=== PATIENT | female | born 1980 | race Caucasian/White ===

== ENCOUNTER → 2020-09-19 14:24 | Outpatient (BNVA) | payer OTHER, SELFPAY | PROVIDERS: Visit Provider Orthopaedic Surgery | DX: M25.361 Other instability, right knee (principal) | CPT/HCPCS: 99212 ==

== ENCOUNTER 2020-11-02 13:54 | Outpatient (REF) | payer OTHER, SELFPAY ==
--- NOTE | 2020-11-02 13:59 | XR_ITS ---
EXAMINATION: XR CHEST CLINICAL INFORMATION: Chest pain. COMPARISON: 08/23/2019 chest radiographs. TECHNIQUE: 2 views of the chest were obtained. FINDINGS: No significant abnormality is noted involving the heart, lungs, mediastinum, bony thorax or soft tissues. XR/XR chest 2V IMPRESSION: No acute cardiopulmonary process.
[2020-11-02 17:31] LABS: Influenza A PCR NEGATIVE (Negative); Influenza B PCR NEGATIVE (Negative); Resp Syncy Virus RNA Qual PCR NEGATIVE (Negative); SARS COV2 PCR INHOUSE NEGATIVE (Negative)
== END 2020-11-02 13:55 | disposition home or self-care (01) ==
LOC: HO.HMGCX 13:54
PROVIDERS: PCP Internal Medicine; Visit Provider Nurse Practitioner Family
DX: R07.9 Chest pain, unspecified (principal); Z20.828 Contact with and (suspected) exposure to other viral communicable diseases
CPT/HCPCS: 0241U; 71046

== ENCOUNTER 2021-03-14 13:16 | Outpatient (REF) | payer OTHER, SELFPAY ==
--- NOTE | ~2021-03-14 | XR_ITS ---
EXAMINATION: XR ELBOW, RIGHT CLINICAL INFORMATION: Trauma, pain COMPARISON: None TECHNIQUE: AP, lateral, and oblique views of the right elbow. FINDINGS: There is no fracture, dislocation, or visible elbow capsular effusion. Bony mineralization is normal. There is no joint narrowing or erosive change. There is some minor spurring from the medial and lateral epicondyles and a small benign-appearing cortical exostosis medial side distal humerus proximally 4 x 3 mm. XR/XR elbow RT min 3V IMPRESSION: 1. No fracture, dislocation, or capsular effusion. 2. Spurring medial and lateral epicondyles. 3. Small benign-appearing exostosis/osteochondroma distal humerus under 5 mm.
== END 2021-03-14 13:17 | disposition home or self-care (01) ==
LOC: HO.HMGCX 13:16
PROVIDERS: PCP Internal Medicine; Visit Provider Nurse Practitioner Family
DX: S59.901A Unspecified injury of right elbow, initial encounter (principal); X58.XXXA Exposure to other specified factors, initial encounter; Y93.9 Activity, unspecified; Y92.9 Unspecified place or not applicable; Y99.9 Unspecified external cause status
CPT/HCPCS: 73080

== ENCOUNTER → 2023-03-07 13:45 | Outpatient (BNVA) | payer SELFPAY | PROVIDERS: PCP Internal Medicine; Visit Provider Orthopaedic Surgery | DX: M25.361 Other instability, right knee (principal) | CPT/HCPCS: 99212 ==

== ENCOUNTER 2023-04-12 15:15 | Outpatient (REF) | payer OTHER, SELFPAY ==
--- NOTE | ~2023-04-12 | MR_ITS ---
EXAMINATION: MR KNEE WITHOUT CONTRAST, RIGHT CLINICAL INFORMATION: Right knee instability. COMPARISON: 07/21/2020. TECHNIQUE: MRI of the knee without contrast was performed using routine sequences on a high-field scanner. FINDINGS: MENISCI: Medial Meniscus: Intact. Lateral Meniscus: There is a new focus of linear abnormal increased intrasubstance signal at the junction of the anterior horn and body which does not clearly communicate with the meniscal surface, most consistent with intrasubstance mucoid degeneration. No discrete surfacing tears. LIGAMENTS: Cruciate: Intact. Collateral: Intact. EXTENSOR MECHANISM: Quadriceps and patellar tendons are intact. Retinacula are unremarkable. Mild prepatellar subcutaneous edema. ARTICULAR CARTILAGE/BONE: Patellofemoral Compartment: Sanl-ub-jjimrtoe nonuniform chondral thinning is again noted at the patella along the median ridge and medial facet with areas of full-thickness chondral fissuring, cortical irregularity, and subchondral edema. Small marginal osteophytes. Focal moderate nonuniform chondral thinning is evident at the medial trochlear facet and central trochlear groove over an area measuring 1.5 x 0.5 cm with a full-thickness chondral fissure. These findings have progressed as compared to prior, most notably at the medial trochlear facet. Normal trochlear morphology. TT-TG distance measures 1.2 cm. Medial Compartment: Minimal chondral thinning and surface irregularity at the medial femoral condyle weightbearing surface. Small marginal osteophytes. Lateral Compartment: There is a small ezkm-cygk-fuzvsasva chondral fissure at the posterior weightbearing surface of the lateral femoral condyle measuring 0.8 cm AP, new as compared to prior. Articular cartilage is otherwise well preserved and lateral compartment. JOINT FLUID AND BURSAE: Trace joint fluid, within normal limits. No Scherer's cyst. MR/MR knee RT wo con IMPRESSION: 1. Progression of the vupe-xh-ldcqgvxw patellofemoral compartment osteoarthritis, primarily occurring at the medial facets. 2.New chondral fissure at the lateral femoral condyle weightbearing surface. 3. New focus of intrasubstance mucoid degeneration at the junction of the anterior horn and body of the lateral meniscus. No discrete meniscal tears.
== END 2023-04-12 15:16 | disposition home or self-care (01) ==
LOC: HO.MRI 15:15
PROVIDERS: PCP Internal Medicine; Visit Provider Orthopaedic Surgery
DX: M25.361 Other instability, right knee (principal); M25.461 Effusion, right knee
CPT/HCPCS: 73721

== ENCOUNTER 2024-03-09 14:06 | Outpatient (AMB) | payer OTHER, SELFPAY ==
--- NOTE | 2024-03-09 14:10 | MHC.OFFVIS ---
Vital Signs 03/09/24 14:11 Height 4 ft 11 in Weight 206 lb BMI 41.6 Intake Visit Reasons: ov-Sublaxation of patella Intake Note: Isabella is a 44 year old female who presents today for a follow up of her right knee patellar instability. Hx of dislocation. Fit for lateral bolster brace at her last visit. Paitent reports that she is not doing well. She reports a fall last year, she was walking on an unever sidewalk. Since this fall she has had multiple subluxations. IMPRESSION 04/12/23 1. Progression of the esbc-ix-qsdkqyxb patellofemoral compartment osteoarthritis, primarily occurring at the medial facets. 2.New chondral fissure at the lateral femoral condyle weightbearing surface. 3. New focus of intrasubstance mucoid degeneration at the junction of the anterior horn and body of the lateral meniscus. No discrete meniscal tears. Allergies basil Allergy (Severe, Verified 03/09/24 14:12) ORAL PHARANGEAL SWELLING penicillin G Allergy (Unknown, Unverified 03/09/24 14:12) HIVES penicillin V Allergy (Unknown, Unverified 03/09/24 14:12) hives Penicillins [PENICILLINS] Allergy (Unknown, Verified 03/09/24 14:12) HIVES corn [[place]] Adverse Reaction (Intermediate, Unverified 03/09/24 14:12) NAUSEA & VOMITING egg [Egg] Adverse Reaction (Intermediate, Verified 03/09/24 14:12) NAUSEA & VOMITING CT Scan dye Allergy (Unknown, Uncoded 03/09/24 14:12) unknown Flushot Allergy (Unknown, Uncoded 03/09/24 14:12) unknown H1N1 VACCINE Allergy (Unknown, Uncoded 03/09/24 14:12) HIVES HPI HPI ov-Sublaxation of patella: Details: Isabella is a 44 year old female who presents today for a follow up of her right knee patellar instability. Hx of dislocation. Fit for lateral bolster brace at her last visit. Patient reports that she is not doing well. She reports a fall last year, she was walking on an uneven sidewalk. Since this fall she has had multiple subluxations. She states her kneecap will stay located and she can not engage in meaningful activities of daily living. COUNTS INCLUDE 234 BEDS AT THE [facility] Medical History (Updated 05/04/23 @ 14:04 by Dayana Rebolledo Fernando) Hx of seizure disorder Hx of atrial tachycardia Hypothyroidism Patellar instability of right knee Asthma Depression Surgical History (Updated 01/02/21 @ 14:40 by ABDI Espinal, [facility]) Status post ligament repair History of tonsillectomy and adenoidectomy Family History (Updated 01/02/21 @ 14:48 by Mattie Craig, ABDI, [facility]) Father Myocardial infarction HTN (hypertension) Diabetes mellitus CVD (cardiovascular disease) Mother No problems noted. Maternal Grandmother Cancer Maternal Grandfather Cancer Paternal Grandmother Cancer Paternal Grandfather No problems noted. Brother No problems noted. Sister No problems noted. Sister No problems noted. Sister No problems noted. Social History Alcohol intake: never Current occupational status: unemployed Current occupation: right handed Physical Exam Vital Signs: BMI result Body Mass Index 41.6 Const General: cooperative, healthy appearing, no acute distress, well developed and alert HEENT Head: Yes normal to inspection, Yes normocephalic and Yes atraumatic Mouth: moist mucous membranes Eyes General: appearance normal, both eyes and all related structures EOM: EOMs intact bilaterally Chest Other: no audible wheezing. Resp Other: No audible wheezing Effort & Inspection: normal respiratory effort Cardio Other: Radial pulse palpable with no rythmic abnormalities Back/Spine/Pelvis Cervical Spine: normal cervical lordosis Skin General skin exam: no rashes or lesions noted Neuro General: no focal motor deficits Extrem Other: Positive apprehension right patella with effusion and pain. I can essentially dislocate her patella with her knee in extension. Psych Appearance: grossly normal and well kempt Mental Status: mental status grossly normal Speech and movement: Normal speech and movement present Affect: normal affect Attitude: cooperative Results Reviewed Results Reviewed: I personally reviewed the MR images. IMPRESSION 04/12/23 1. Progression of the bddy-iv-txpowjdq patellofemoral compartment osteoarthritis, primarily occurring at the medial facets. 2.New chondral fissure at the lateral femoral condyle weightbearing surface. 3. New focus of intrasubstance mucoid degeneration at the junction of the anterior horn and body of the lateral meniscus. No discrete meniscal tears. Assessment & Plan Assessment & Plan (1) Patellar instability of right knee: Code(s): M25.361 - Other instability, right knee Category: Medical Plan: This is a 44-year-old with marked instability of the right patella. She is dislocated multiple times and this is new having never occurred prior to her 1st dislocation about a year ago. She is normal trochlea and patellar height and I recommend a medial patellofemoral ligament reconstruction. I discussed this procedure with her as well as the risks of stiffness, pain and redislocation as well as fracture or other complications associated with surgery. She understands and we will proceed forward accordingly. Coding Level of Care Code Est Pt Level 4 (70580) Diagnoses Patellar instability of right knee M25.361
[2024-03-09 14:11] VITALS: BMI 41.6
== END 2024-03-09 14:37 | disposition home or self-care (01) ==
PROVIDERS: PCP Internal Medicine; Visit Provider Orthopaedic Surgery
DX: M25.361 Other instability, right knee (principal)
CPT/HCPCS: 99214

== ENCOUNTER → 2024-03-09 14:06 | Outpatient (BNVA) | payer OTHER, SELFPAY | PROVIDERS: PCP Internal Medicine; Visit Provider Orthopaedic Surgery | DX: M25.361 Other instability, right knee (principal) | CPT/HCPCS: 99212 ==

== ENCOUNTER 2024-04-07 11:09 | Outpatient (AMB) | payer OTHER, SELFPAY ==
--- NOTE | 2024-04-07 11:12 | A.OFFVIS_ITS ---
Vital Signs 04/07/24 11:13 Height 4 ft 11 in Weight 206 lb BMI 41.6 Handedness Right Intake Visit Reasons: Preop RT MPFL reconstruction 04/15/24 NE Intake Note: Isabella is a 44 year old right hand dominant female who presents today for a pre op appointment for her right MPFL reconstruction 04/15/24 NE. Allergies basil Allergy (Severe, Verified 03/09/24 14:12) ORAL PHARANGEAL SWELLING penicillin G Allergy (Unknown, Unverified 03/09/24 14:12) HIVES penicillin V Allergy (Unknown, Unverified 03/09/24 14:12) hives Penicillins [PENICILLINS] Allergy (Unknown, Verified 03/09/24 14:12) HIVES corn [[place]] Adverse Reaction (Intermediate, Unverified 03/09/24 14:12) NAUSEA & VOMITING egg [Egg] Adverse Reaction (Intermediate, Verified 03/09/24 14:12) NAUSEA & VOMITING CT Scan dye Allergy (Unknown, Uncoded 03/09/24 14:12) unknown Flushot Allergy (Unknown, Uncoded 03/09/24 14:12) unknown H1N1 VACCINE Allergy (Unknown, Uncoded 03/09/24 14:12) HIVES HPI HPI Preop RT MPFL reconstruction 04/15/24 NE: Details: 44-year-old right hand dominant female who presents in the office today for her preoperative history and physical exam prior to a right knee medial patellofemoral ligament reconstruction to be performed on 04/15/[address] Travis Beltran. While in the office today the patient reports she is currently working to obtain transportation to the hospital for the day of surgery. Patient is accompanied in the office today by a female family member. Patient has an allergy history, as follows: -Basil; oral pharangeal edema -Penicillin; hives -[place]; vomiting -Egg; nausea and vomiting; Patient states she does not have this allergy any longer. -CT scan dye; unknown -Flu shot; unknown -H1N1 vaccine; hives Patient is currently taking, as follows: -Aspirin 81 mg PO daily -Atorvastatin 80 mg PO daily -Cyproheptadine 4 mg PO BID -Fluoxetine 10 mg PO daily -Lamotrigine 25 mg PO daily -Levothyroxine 25 mcg PO QAM -Metformin 500 mg PO BID -Naproxen 500 mg PO BID -Prazosin 2 mg PO Bedtime -Prazosin 5 mg PO -Trazadone 50 mcg PO bedtime PRN Patient has a medical history, as follows: -Diabetes mellitus -Hypothyroidism -History of seizure disorder; last episode in 1998. -History of atrial tachycardia; diagnosed ?a long time ago?. Only feels symptoms with stress. -Asthma -Depression Patient has a surgical history, as follows: -Hx of ligament repair; right foot: ?When she was 12 or 13? -Hx of tonsillectomy and adenoidectomy Patient denies any complications with anesthesia. [facility] Medical History (Updated 04/07/24 @ 11:39 by Tracy Drummond) Hx of seizure disorder Hx of atrial tachycardia Hypothyroidism Patellar instability of right knee Asthma Depression Surgical History (Updated 01/02/21 @ 14:40 by ABDI Espinal, [employer]) Status post ligament repair History of tonsillectomy and adenoidectomy Family History (Updated 01/02/21 @ 14:48 by Mattie Craig, ABDI, [employer]) Father Myocardial infarction HTN (hypertension) Diabetes mellitus CVD (cardiovascular disease) Mother No problems noted. Maternal Grandmother Cancer Maternal Grandfather Cancer Paternal Grandmother Cancer Paternal Grandfather No problems noted. Brother No problems noted. Sister No problems noted. Sister No problems noted. Sister No problems noted. Social History (Updated 04/07/24 @ 11:15 by Alie Goodman) Alcohol intake: never Patient Tobacco Use Status: Never used Tobacco Current occupational status: unemployed Current occupation: right handed Review of Systems Const All systems reviewed & are unremarkable except as noted in HPI and below Physical Exam Vital Signs: BMI result Body Mass Index 41.6 Const General: cooperative, healthy appearing, comfortable, no acute distress, well developed, alert and awake Orientation/consciousness: patient oriented x3 HEENT Head: Yes normal to inspection, Yes normocephalic and Yes atraumatic Mouth: moist mucous membranes Eyes General: appearance normal, both eyes and all related structures EOM: EOMs intact bilaterally Neck Neck: Yes normal visual inspection and Yes no lymphadenopathy Chest Other: no audible wheezing. Resp Other: No audible wheezing Effort & Inspection: normal respiratory effort and able to speak in complete sentences Cardio Other: Radial pulse palpable with no rythmic abnormalities Rate: regular rate Peripheral pulses: Peripheral pulses 2+ throughout GI Inspection: Yes normal to inspection Palpation (GI): Soft to palpation Back/Spine/Pelvis Cervical Spine: normal cervical lordosis Skin General skin exam: no rashes or lesions noted Neuro General: patient oriented x3 Extrem Other: Right knee: Skin is clean, dry, and intact. Positive apprehension right patella with effusion and pain. I can essentially dislocate her patella with her knee in extension. Psych Appearance: grossly normal and well kempt Mental Status: mental status grossly normal Speech and movement: Normal speech and movement present Affect: normal affect Attitude: cooperative Assessment & Plan Assessment & Plan (1) Patellar instability of right knee: Code(s): M25.361 - Other instability, right knee Category: Medical (2) Diabetes mellitus: Code(s): E11.9 - Type 2 diabetes mellitus without complications Category: Medical Plan Ms. Malloy is a 44-year-old right hand dominant female who presents in the office today for her preoperative history and physical exam prior to a right knee medial patellofemoral ligament reconstruction to be performed on 04/15/[address] Travis Beltran. While in the office today the patient reports she is currently working to obtain transportation to the hospital for the day of surgery. Patient is accompanied in the office today by a female family member. Patient has an allergy history, as follows: -Basil; oral pharangeal edema -Penicillin; hives -[place]; vomiting -Egg; nausea and vomiting; Patient states she does not have this allergy any longer. -CT scan dye; unknown -Flu shot; unknown -H1N1 vaccine; hives Patient is currently taking, as follows: -Aspirin 81 mg PO daily -Atorvastatin 80 mg PO daily -Cyproheptadine 4 mg PO BID -Fluoxetine 10 mg PO daily -Lamotrigine 25 mg PO daily -Levothyroxine 25 mcg PO QAM -Metformin 500 mg PO BID -Naproxen 500 mg PO BID -Prazosin 2 mg PO Bedtime -Prazosin 5 mg PO -Trazadone 50 mcg PO bedtime PRN Patient has a medical history, as follows: -Diabetes mellitus -Hypothyroidism -History of seizure disorder; last episode in 1998. -History of atrial tachycardia; diagnosed ?a long time ago?. Only feels symptoms with stress. -Asthma -Depression Patient has a surgical history, as follows: -Hx of ligament repair; right foot: ?When she was 12 or 13? -Hx of tonsillectomy and adenoidectomy Patient denies any complications with anesthesia. I discussed in detail the procedure and what to expect pre and post operatively. We discussed the risks, benefits and alternatives to the surgery and the rehabilitation course. The risks include infection, bleeding, nerve injury, ongoing pain, swelling, and stiffness, perioperative risk of injury to bones and soft tissues, and blood clots. I have answered all questions and with their understanding they have consented to move forward with a right knee medial patellofemoral ligament reconstruction to be performed on 04/15/[address] Travis Beltran. Post operative medications were sent to the pharmacy, Oxycodone-acetaminophen 5- 325 mg (Percocet) PO Q4-6H PRN, quantity 42 tabs for 7 days and Morphine ER 15 mg (MS Contin) PO Q12H PRN, quantity 6 tabs for 3 days, while in the office today. The patient was instructed that she should obtain the prescription prior to surgery but should not consume until after the procedure; as these should only be taken for post operative pain management. Should the patient take these medications before surgery, a refill will not be sent to the pharmacy until their scheduled refill date. Follow-up will be at the post operative appointment on 04/23/2024 at 2:15 pm, or sooner if needed. Patient was fitted for the ACL brace in the office today. PT order for after surgery was created while in the office today. Orders: Orders PT Evaluation and Treatment Today M25.361 - Other instability, right knee Medications: New oxycodone-acetaminophen 5-325 mg (Percocet) Partial Fill upon patient request. 1 tab PO Q4-6H PRN 42 tabs 0RF pain 7 days morphine ER (MS Contin) Partial Fill upon patient request. 15 mg PO Q12H 6 tabs 0RF 3 days Patient Instructions: Scribed by Tracy Drummond medical record consultant, for Mouna Cordero PA-C on 04/07/2024 at 11:40 am, EST. Coding Level of Care Code Global (96430) Diagnoses Patellar instability of right knee M25.361 Diabetes mellitus E11.9
[2024-04-07 11:13] VITALS: BMI 41.6
== END 2024-04-07 11:41 | disposition home or self-care (01) ==
PROVIDERS: PCP Internal Medicine; Visit Provider Physician Assistant
DX: M25.361 Other instability, right knee (principal); E11.9 Type 2 diabetes mellitus without complications
CPT/HCPCS: 99024

== ENCOUNTER → 2024-04-07 11:09 | Outpatient (BNVA) | payer OTHER, SELFPAY | PROVIDERS: PCP Internal Medicine; Visit Provider Physician Assistant | DX: M25.361 Other instability, right knee (principal); E11.9 Type 2 diabetes mellitus without complications; Z79.84 Long term (current) use of oral hypoglycemic drugs | CPT/HCPCS: 99212 ==

== ENCOUNTER 2024-04-15 10:22 | Day surgery (SDC) | payer OTHER, SELFPAY ==
[2024-04-13 07:09] VITALS: BMI 41.6
--- NOTE | 2024-04-13 13:47 | HO.ANESPROP2 ---
Documented by User: Daysi Dawkins NP 04/14/24 10:37 HPI - Anesthesia Eval Consult details Narrative: 44yo F for Right Medial Patellafemoral Ligament PMFSH Active Problems Active Problems: All Active Problems Diabetes mellitus (Acute) Elbow pain, right (Acute) Elbow injury (Acute) Chest wall pain (Acute) Hypothyroidism (Acute) Patellar instability of right knee (Acute) Right knee pain (Acute) Past Medical History Medical History Hx of seizure disorder Hx of atrial tachycardia Hypothyroidism Patellar instability of right knee Asthma Depression Family History Family History Father Myocardial infarction HTN (hypertension) Diabetes mellitus CVD (cardiovascular disease) Mother No problems noted. Maternal Grandmother Cancer Maternal Grandfather Cancer Paternal Grandmother Cancer Paternal Grandfather No problems noted. Brother No problems noted. Sister No problems noted. Sister No problems noted. Sister No problems noted. Surgical History Surgical History Status post ligament repair History of tonsillectomy and adenoidectomy Social History Social History Alcohol intake: never Patient Tobacco Use Status: Never used Tobacco Use of substances other than those prescribed or required for medical reasons: No Are you DNR?: No Advance Directives: No Advance Directives Information Provided: Yes Current occupational status: unemployed Current occupation: right handed Meds Allergies Allergy/AdvReac Type Severity Reaction Status Date / Time penicillin G Allergy Unknown HIVES Verified 04/15/24 11:13 penicillin V Allergy Unknown hives Verified 04/15/24 11:13 Penicillins [PENICILLINS] Allergy Unknown HIVES Verified 04/15/24 11:13 basil Allergy Anaphylaxis Verified 04/15/24 11:13 CT Scan dye Allergy Unknown unknown Uncoded 04/15/24 11:13 Flushot Allergy Unknown unknown Uncoded 04/15/24 11:13 H1N1 VACCINE Allergy Unknown HIVES Uncoded 04/15/24 11:13 Home Medications ?Medication ?Instructions ?Recorded ?Confirmed ?Last Taken ?Type fluoxetine 10 mg capsule 10 mg PO DAILY 08/19/20 04/15/24 Unknown History naproxen 500 mg tablet 500 mg PO BID 08/19/20 04/15/24 Unknown History prazosin 2 mg capsule 2 mg PO BEDTIME 08/19/20 04/15/24 Unknown History trazodone 50 mg tablet 50 mg PO BEDTIME PRN Insomnia 03/09/24 04/15/24 Unknown History Exam Height,Weight and Vital Signs: Height 4 ft 11 in Weight 93.44 kg Documented by User: Jessie Puga MD 04/15/24 12:40 PMFSH Past Medical History Medical History Hx of seizure disorder Hx of atrial tachycardia Hypothyroidism Patellar instability of right knee Asthma Depression Family History Family History Father Myocardial infarction HTN (hypertension) Diabetes mellitus CVD (cardiovascular disease) Mother No problems noted. Maternal Grandmother Cancer Maternal Grandfather Cancer Paternal Grandmother Cancer Paternal Grandfather No problems noted. Brother No problems noted. Sister No problems noted. Sister No problems noted. Sister No problems noted. Family history of problems with anesthesia: No Surgical History Surgical History Status post ligament repair History of tonsillectomy and adenoidectomy History of Problems with Anesthesia: No Social History Social History Alcohol intake: never Patient Tobacco Use Status: Never used Tobacco Use of substances other than those prescribed or required for medical reasons: No Are you DNR?: No Advance Directives: No Advance Directives Information Provided: Yes Current occupational status: unemployed Current occupation: right handed Meds Allergies Allergy/AdvReac Type Severity Reaction Status Date / Time penicillin G Allergy Unknown HIVES Verified 04/15/24 11:13 penicillin V Allergy Unknown hives Verified 04/15/24 11:13 Penicillins [PENICILLINS] Allergy Unknown HIVES Verified 04/15/24 11:13 basil Allergy Anaphylaxis Verified 04/15/24 11:13 CT Scan dye Allergy Unknown unknown Uncoded 04/15/24 11:13 Flushot Allergy Unknown unknown Uncoded 04/15/24 11:13 H1N1 VACCINE Allergy Unknown HIVES Uncoded 04/15/24 11:13 Home Medications ?Medication ?Instructions ?Recorded ?Confirmed ?Last Taken ?Type fluoxetine 10 mg capsule 10 mg PO DAILY 08/19/20 04/15/24 Unknown History naproxen 500 mg tablet 500 mg PO BID 08/19/20 04/15/24 Unknown History prazosin 2 mg capsule 2 mg PO BEDTIME 08/19/20 04/15/24 Unknown History trazodone 50 mg tablet 50 mg PO BEDTIME PRN Insomnia 03/09/24 04/15/24 Unknown History Exam Airway Mallampati Class: II TM Dist: >3cm Neck ROM: Limited Heart: rrr Lungs: cta Assessment and Plan Assessment Anesthesia Assessment: Anesthesia Plan Discussed and Chart Reviewed Final Anesthetic Review Family History of Problems with Anesthesia: No History of Problems with Anesthesia: No NPO: Yes ASA Class: III Final Preanesthetic Review: No Changes in Pt Med Stat, Meds/Allgs Chart Reviewed, Consent Obtained/Reviewed and Anes Risks/Benef Reviewed Patient Risk: Intermediate Procedure Risk: Low Anesthetic Plan Anesthetic Plan: GA Disposition: Standard PACU
[2024-04-15] VITALS (8 sets, daily range): BP systolic 137–159; BP diastolic 71–90; PULSE 78–94; RESP 14–22; TEMP 36.6–36.9; O2SAT 95–99; BMI 43.8
[2024-04-15 10:42] LABS: UPreg QC Valid YES; Urine Pregnancy NEGATIVE (NEGATIVE)
[2024-04-15 11:05] LABS: Glucose, Whole Blood 112 mg/dL (60-115)
[2024-04-15] MEDS: Lactated Ringers 1,000 ML 100 ML IVCONT (11:22)
--- NOTE | 2024-04-15 11:58 | MHC.SHP ---
Pre-Procedural Eval Section A - 24 Hr Update-Section A only Date of Service: 04/15/24 The patient is an INPATIENT: No Changes since office visit: No Cold of Flu in the past 2 weeks, No New Medical Problems, No Changes in Medication and No Patient answered all questions The patient has been examined within 24 hours of the surgical procedure. The History & Physical has been completed within 30 days and I have reviewed it.: Yes Section B - Complete if H&P > 30 days Chief Complaint: Other instability, right knee Allergies: Allergies Allergy/AdvReac Type Severity Reaction Status Date / Time penicillin G Allergy Unknown HIVES Verified 04/15/24 11:13 penicillin V Allergy Unknown hives Verified 04/15/24 11:13 Penicillins [PENICILLINS] Allergy Unknown HIVES Verified 04/15/24 11:13 basil Allergy Anaphylaxis Verified 04/15/24 11:13 CT Scan dye Allergy Unknown unknown Uncoded 04/15/24 11:13 Flushot Allergy Unknown unknown Uncoded 04/15/24 11:13 H1N1 VACCINE Allergy Unknown HIVES Uncoded 04/15/24 11:13 Plan I have reviewed the history and physical and performed a pertinent physical examination on my patient. No changes have occurred unless specified. Time Spent With Patient Time: Total time managing care of this patient today ____ minutes.
[2024-04-15] MEDS: fentaNYL citrate/PF 100 MCG/2 ML VIAL 25 MCG IVPUSH ×4 (15:15→15:30)
--- NOTE | 2024-04-15 15:37 | PM.OP ---
Brief Operative Note Date of Service: 04/15/24 Pre-op diagnosis: Right patellar instability Post-op diagnosis: same Procedure: MPFL reconstruction with allograft Implants: Russo and Nephew all suture suturee anchor x 3 and 20ml x 8 interference screw Surgeon: Travis Beltran MD Anesthesia: GETA and regional Was an Nitroglycerin Separator Operator used for this Procedure?: Yes Nitroglycerin Separator Operator: Mouna Cordero Estimated blood loss (mL): 20 Tourniquet time (min): 40 IV fluids (mL): 500 Pathology: none sent Condition: stable Disposition: PACU
--- NOTE | 2024-04-19 07:48 | P.OP_ITS ---
Operative Note Operative Note Date of Service: 04/15/24 Narrative: Date of Service: 04/15/24 Pre-op diagnosis: Right patellar instability Post-op diagnosis: same Procedure: MPFL reconstruction with allograft Implants: Russo and Nephew all suture suture anchor x 3 and 20ml x 8 interference screw Surgeon: Travis Beltran MD Anesthesia: GETA and regional Was an Vocational Education Teacher used for this Procedure?: Yes Vocational Education Teacher: Mouna Cordero Estimated blood loss (mL): 20 Tourniquet time (min): 40 IV fluids (mL): 500 Pathology: none sent Condition: stable Disposition: PACU Procedure in detail: Patient was brought to the operating room placed supine on the arthroscopic table and prepped and draped in standard sterile fashion. A time-out was called to identify proper site proper procedure proper surgeon and IV antibiotics per weight were administered. I began by exsanguinating the limb and insufflating tourniquet to 300 mm Hg. Then made a standard anterolateral stab incision. The knee was insufflated with water and 30 degree arthroscope was placed. There was grade 1 fibrillations of the patella but overall suprapatellar pouch and the gutters were clean. The patella was hypermobile and perching on the lateral femoral condyle when in extension. I was able to easily translate it into a severely subluxed position. There was evidence of MPFL disruption at the undersurface of the medial patellar facet. The decision was then made to proceed forward with MPFL reconstruction and the allograft was opened on the back table and thawed, My lab assistant prepared the graft by whip-stitching the ends. Meanwhile I made a longitudinal incision between the medial patellar face and the medial femoral epicondyle. The mobile window was then used to visualize the capsule . The capsule was penetrated the expose the entirety of the medial patella, superior to the articular surface. The soft tissue was removed and a rongeur was used to remove the cortical bone and expose a bleeding bony bed. Three 1.8mm all suture anchors were placed in parallel along the medial border of the patella. The graft was then oversewn to these three anchors leaving two tails. These tails were then fed between the capsule and the retinaculum. A small second incision was made directly over the medial epicondyle and I bluntly dissected down to the origen of the MPFL just proximal and posterior to the epicondyle. A beefpin was then drilled through the femur and overdrilled with an 8mm reamer ~ 40 mm. I then brought both limbs of the allograft into the tunnel and tightened the construct. An arthroscope was reinserted and I visualized the tension. I was satisfied with the location of the patella relative to the trochlea and I was unable to sublux the patella laterally. The allograft was extra-articular. I then returned to the medial tunnel where i placed my interference screw. I then removed all extraneous instrumentation and cycled the knee. I was satisfied with the tension. I then irrigated and closed with absorbable suture. Patient was then extubated and brought to the recovery room in stable condition. there were no known complications.
== END 2024-04-15 16:00 | disposition home or self-care (01) ==
LOC: HO.SSS 10:24
PROVIDERS: Nurse Practitioner; PCP Internal Medicine; Visit Provider Orthopaedic Surgery
PROC: (CPT 27422; principal; 2024-04-15 13:30)
DX: M25.361 Other instability, right knee (principal); E11.9 Type 2 diabetes mellitus without complications; J45.909 Unspecified asthma, uncomplicated; Z79.82 Long term (current) use of aspirin; Z79.84 Long term (current) use of oral hypoglycemic drugs; Z79.899 Other long term (current) drug therapy; Z88.0 Allergy status to penicillin
CPT/HCPCS: 27422; 29870; 81025; 82947; C1713; C1762; J0131; J0171; J0665; J0736; J1100; J2250; J2405; J2704; J3010

== ENCOUNTER → 2024-04-15 10:22 | Outpatient (BNV) | payer OTHER, SELFPAY | PROVIDERS: PCP Internal Medicine; Visit Provider Orthopaedic Surgery | DX: M25.361 Other instability, right knee (principal) | CPT/HCPCS: 27427 ==

== ENCOUNTER 2024-04-23 11:59 | Outpatient (REF) | payer OTHER, SELFPAY ==
--- NOTE | ~2024-04-23 | XR_ITS ---
EXAMINATION: XR KNEE, RIGHT CLINICAL INFORMATION: Pain knee. COMPARISON: X-ray 07/21/2020, MR 04/12/2023 . TECHNIQUE: Two views of the right knee. FINDINGS: There is a transverse defect along the distal diametaphysis of the femur with multiple punctate radiodensities extending along this defect as well as in the soft tissues along the medial diametaphysis of the femur. Joint effusion with small lucencies characteristic of air and soft tissue swelling at the knee. Tiny medial marginal and posterior patellar osteophytes. Mild narrowing of the medial compartment. XR/XR knee RT 2V IMPRESSION: Transverse defect along the distal diametaphysis of the femur with multiple punctate radiodensities extending along this defect as well as in the soft tissues along the medial diametaphysis of the femur. Joint effusion with small lucencies characteristic of air and soft tissue swelling at the knee.
== END 2024-04-23 12:00 | disposition home or self-care (01) ==
LOC: HO.HOSX 11:59
PROVIDERS: Visit Provider Physician Assistant
DX: M25.561 Pain in right knee (principal); M25.361 Other instability, right knee; Z47.89 Encounter for other orthopedic aftercare; Z98.890 Other specified postprocedural states
CPT/HCPCS: 73560; 99212

== ENCOUNTER 2024-04-23 13:59 | Outpatient (AMB) | payer OTHER, SELFPAY ==
--- NOTE | 2024-04-23 14:04 | A.OFFVIS_ITS ---
Intake Visit Reasons: PO RT MPFL reconstruction 04/15/24 NE Intake Note: Isabella is a 44 year old female who presents today for a post op s/p RT MPFL reconstruction 04/15/24 NE. Patient reports having discomfort around the incision site. Having a lot of pain at night. Allergies penicillin G Allergy (Unknown, Verified 04/23/24 14:20) HIVES penicillin V Allergy (Unknown, Verified 04/23/24 14:20) hives Penicillins [PENICILLINS] Allergy (Unknown, Verified 04/23/24 14:20) HIVES basil Allergy (Verified 04/23/24 14:20) Anaphylaxis CT Scan dye Allergy (Unknown, Uncoded 04/15/24 11:13) unknown Flushot Allergy (Unknown, Uncoded 04/15/24 11:13) unknown H1N1 VACCINE Allergy (Unknown, Uncoded 04/15/24 11:13) HIVES HPI HPI PO RT MPFL reconstruction 04/15/24 NE: Details: 44-year-old right hand dominant female who presents in the office today 8 days status post right knee MPFL reconstruction with allograft, which was performed on 04/15/[address] Beltran. While in the office today the patient reports having pain around the incision site. She also claims to have ?a lot? of pain at night. [facility] Medical History Hx of seizure disorder Hx of atrial tachycardia Hypothyroidism Patellar instability of right knee Asthma Depression Surgical History Status post ligament repair History of tonsillectomy and adenoidectomy Family History Father Myocardial infarction HTN (hypertension) Diabetes mellitus CVD (cardiovascular disease) Mother No problems noted. Maternal Grandmother Cancer Maternal Grandfather Cancer Paternal Grandmother Cancer Paternal Grandfather No problems noted. Brother No problems noted. Sister No problems noted. Sister No problems noted. Sister No problems noted. Social History Alcohol intake: never Patient Tobacco Use Status: Never used Tobacco Current occupational status: unemployed Current occupation: right handed Review of Systems Const All systems reviewed & are unremarkable except as noted in HPI and below Physical Exam Const General: cooperative, healthy appearing and no acute distress Resp Effort & Inspection: normal respiratory effort and able to speak in complete sentences Cardio Rate: regular rate Peripheral pulses: Peripheral pulses 2+ throughout GI Palpation (GI): Soft to palpation Skin Lesions: no lesions Rashes: no rashes Extrem Other: Right knee: Arthroscopic portal incision site is clean, dry, and intact. No surrounding erythema or drainage. No signs of infection. There are two medial incision sites that have surrounding erythema. Patient reports these are ?i tchy?. No active drainage. No signs of infection. NVI. Patient ROM was not tested during today?s exam. Assessment & Plan Assessment & Plan (1) Patellar instability of right knee: Comment: Right knee MPFL reconstruction with allograft 04/15/2024 NE Code(s): M25.361 - Other instability, right knee Category: Surgical (2) Diabetes mellitus: Code(s): E11.9 - Type 2 diabetes mellitus without complications Category: Medical Plan Ms. Malloy is a 44-year-old right hand dominant female who presents in the office today 8 days status post right knee MPFL reconstruction with allograft, which was performed on 04/15/[address] Beltran. While in the office today the patient reports having pain around the incision site. She also claims to have ?a lot? of pain at night. Sutures were removed, and steri-stripes were applied. I did apply tape to the remaining steri-stripes as the patient is exhibiting signs of skin reaction. I confirmed with the patient that she has had Tegaderm on her skin in the past with no allergic reaction. Therefore, we applied 4 by 4 gauze and Tegaderm over the two medial incision sites. I instructed the patient to take Benadryl for itching. The patient was also encouraged to begin physical therapy as soon as possible. Follow-up will be in one week for a wound check, or sooner if needed. X-rays of the right knee which were obtained while in the office today and were reviewed by me, Mouna Cordero PA-C, revealed anticipated postoperative changes. No acute fracture or dislocation. Orders: Orders PT Evaluation and Treatment Today M25.361 - Other instability, right knee XR knee RT 2V Today M25.569 - Pain in unspecified knee Patient Instructions: Scribed by Tracy Drummond, medical planner, for Mouna Cordero PA-C on 04/23/2024 at 2:03 pm, EST. Coding Level of Care Code Global (98723) Diagnoses Patellar instability of right knee M25.361 Diabetes mellitus E11.9
== END 2024-04-23 15:01 | disposition home or self-care (01) ==
PROVIDERS: PCP Internal Medicine; Visit Provider Physician Assistant
DX: M25.361 Other instability, right knee (principal); E11.9 Type 2 diabetes mellitus without complications
CPT/HCPCS: 99024

== ENCOUNTER 2024-05-06 13:54 | Outpatient (AMB) | payer OTHER, SELFPAY ==
--- NOTE | 2024-05-06 14:02 | MHC.OFFVIS ---
Vital Signs 05/06/24 14:03 Height 4 ft 11 in Weight 217 lb BMI 43.8 Intake Visit Reasons: PO RT MPFL reconstruction 04/15/24 NE Intake Note: Isabella is a 44 year old right hand dominant female who presents today post operatively s/p Right MPFL reconstruction 04/15/24 NE. Patient reports she feels like there is someone pulling an elastic band as tight as they can in the anterior aspect of the knee. She banged her knee on her mom's car door yesterday but had a sooting pain down her leg for a second but states she is now okay. She would like to know how long she has to utilize her crutches. Allergies penicillin G Allergy (Unknown, Verified 05/06/24 14:04) HIVES penicillin V Allergy (Unknown, Verified 05/06/24 14:04) hives Penicillins [PENICILLINS] Allergy (Unknown, Verified 05/06/24 14:04) HIVES basil Allergy (Verified 05/06/24 14:04) Anaphylaxis CT Scan dye Allergy (Unknown, Uncoded 05/06/24 14:04) unknown Flushot Allergy (Unknown, Uncoded 05/06/24 14:04) unknown H1N1 VACCINE Allergy (Unknown, Uncoded 05/06/24 14:04) HIVES HPI HPI PO RT MPFL reconstruction 04/15/24 NE: Details: Patient is a 44-year-old female who presents for postoperative appointment for right MPFL reconstruction on 04/15/[address] Beltran. Patient reports that she is feeling well, and her only concern is that, very occasionally, she experiences a feeling like a tight band in her knee, but she reports that this is nonpainful and typically resolves after a few seconds. Patient reports that she has been weight-bearing as tolerated, but has not done so outside of her brace. She also states that the only time she is removed her brace has been when she went to the urgent care to get a skin reaction from Steri-Strips evaluated. Patient has her 1st appointment with physical therapy on Saturday. Patient questions if her incision sites are still healing well, and inquires if she still needs to keep them covered,, as sutures were removed at her last visit. Patient's only other concern is that occasionally, her brace slipped down and digs into her medial ankle. PFSH Medical History Hx of seizure disorder Hx of atrial tachycardia Hypothyroidism Asthma Depression Surgical History Patellar instability of right knee Status post ligament repair History of tonsillectomy and adenoidectomy Family History Father Myocardial infarction HTN (hypertension) Diabetes mellitus CVD (cardiovascular disease) Mother No problems noted. Maternal Grandmother Cancer Maternal Grandfather Cancer Paternal Grandmother Cancer Paternal Grandfather No problems noted. Brother No problems noted. Sister No problems noted. Sister No problems noted. Sister No problems noted. Social History Alcohol intake: never Patient Tobacco Use Status: Never used Tobacco Current occupational status: unemployed Current occupation: right handed Physical Exam Vital Signs: BMI result Body Mass Index 43.8 Extrem Other: Patient is alert, oriented, and in no acute distress On inspection, there is very mild edema present in the right knee Well-healing surgical incisions noted No erythema or evidence of infection. Patient is currently in a brace locked in extension NVI Assessment & Plan Assessment & Plan (1) Patellar instability of right knee: Comment: Right knee MPFL reconstruction with allograft 04/15/2024 NE Code(s): M25.361 - Other instability, right knee Category: Surgical Plan 1. Patellar instability of right knee, status post right MPFL reconstruction DOS 04/15/[address] Beltran Patient is doing very well postoperatively Patient is educated about the typical postoperative course Due to previous allergic reaction described as a ?burn?, Steri-Strips can not be applied at this time, so patient is advised to use Band-Aids to cover longest incision for approximately 1 more week. Patient was provided with a MPFL reconstruction rehabilitation guidelines sheet to provide to physical therapy, which starts on Saturday05/11/2024 Patient is provided with a sleeve to wear under brace, to prevent the brace from digging into her medial malleolus. Patient is also advised to consider tightening the brace in order to prevent slipping down. Patient will follow-up in [address] Beltran, sooner with any acute concerns Coding Level of Care Code Global (89920) Diagnoses Patellar instability of right knee M25.847
[2024-05-06 14:03] VITALS: BMI 43.8
== END 2024-05-06 14:35 | disposition home or self-care (01) ==
PROVIDERS: PCP Internal Medicine
DX: M25.361 Other instability, right knee (principal)
CPT/HCPCS: 99024

== ENCOUNTER → 2024-05-06 13:54 | Outpatient (BNVA) | payer OTHER, SELFPAY | PROVIDERS: PCP Internal Medicine | DX: Z47.89 Encounter for other orthopedic aftercare (principal) | CPT/HCPCS: 99212 ==

== ENCOUNTER 2024-05-25 13:38 | Outpatient (AMB) | payer OTHER, SELFPAY ==
--- NOTE | 2024-05-25 13:50 | A.OFFVIS_ITS ---
Intake Visit Reasons: PO RT MPFL reconstruction 04/15/24 NE Intake Note: Isabella is a 44 year old right hand dominant female who presents today post operatively s/p right MPFL reconstruction 04/15/24 NE. Patient reports last Saturday while she was at a nail salon with her leg raised, her leg accidentally was bumped and bent. Currently she has been having constant pain and swelling. Allergies penicillin G Allergy (Unknown, Verified 05/06/24 14:04) HIVES penicillin V Allergy (Unknown, Verified 05/06/24 14:04) hives Penicillins [PENICILLINS] Allergy (Unknown, Verified 05/06/24 14:04) HIVES basil Allergy (Verified 05/06/24 14:04) Anaphylaxis CT Scan dye Allergy (Unknown, Uncoded 05/06/24 14:04) unknown Flushot Allergy (Unknown, Uncoded 05/06/24 14:04) unknown H1N1 VACCINE Allergy (Unknown, Uncoded 05/06/24 14:04) HIVES Medication List - Last Reconciled 05/25/24 by Ignacio Champagne PA-C aspirin 81 mg PO DAILY atorvastatin 80 mg PO DAILY 90 days cyproheptadine 4 mg PO BID 30 days fluoxetine 10 mg PO DAILY lamotrigine 25 mg PO DAILY 30 days leg brace (Knee Support Brace) PLAYMAKER 2, SPACER, WRAP, XL M25.361 levothyroxine 25 mcg PO QAM 90 days metformin 500 mg PO BID 90 days morphine ER (MS Contin) 15 mg PO Q12H 3 days naproxen 500 mg PO BID naproxen 500 mg PO BID 30 days prazosin 2 mg PO BEDTIME trazodone 50 mg PO BEDTIME PRN HPI HPI PO RT MPFL reconstruction 04/15/24 NE: Details: 44-year-old female returns to the office today for her right knee. She is status post right MPFL reconstruction on 04/15/[address] Beltran. She states she was doing well however a few days ago she was at the nails along with her leg extended in the brace when someone bumped into her and she felt pain along the lateral side of the knee. She states the knee did not bend and she did not fall. She states she had excruciating pain immediately after this incident which has been limiting her ability to perform daily activities and work with physical therapy. She states prior to this incident she was able to bend her knee to 50 degrees however at this time she can only bend proximally 15 degrees due to pain. [facility] Medical History Hx of seizure disorder Hx of atrial tachycardia Hypothyroidism Asthma Depression Surgical History Patellar instability of right knee Status post ligament repair History of tonsillectomy and adenoidectomy Family History Father Myocardial infarction HTN (hypertension) Diabetes mellitus CVD (cardiovascular disease) Mother No problems noted. Maternal Grandmother Cancer Maternal Grandfather Cancer Paternal Grandmother Cancer Paternal Grandfather No problems noted. Brother No problems noted. Sister No problems noted. Sister No problems noted. Sister No problems noted. Social History Alcohol intake: never Patient Tobacco Use Status: Never used Tobacco Current occupational status: unemployed Current occupation: right handed Review of Systems Const All systems reviewed & are unremarkable except as noted in HPI and below Physical Exam Const General: cooperative and no acute distress Orientation/consciousness: patient oriented x3 Resp Effort & Inspection: normal respiratory effort and able to speak in complete sentences Cardio Peripheral pulses: Peripheral pulses 2+ throughout Neuro General: patient oriented x3 Extrem Other: Right knee is normal to inspection. All surgical sites are well healed. There is no erythema no significant joint effusion on exam. She has full extension. Active flexion is 15 degrees, I can passively flex her to about 30 degrees. She is able to initiate straight leg raise. Calf supple nontender neurovascularly intact. Assessment & Plan Assessment & Plan (1) Patellar instability of right knee: Comment: Right knee MPFL reconstruction with allograft 04/15/2024 NE Code(s): M25.361 - Other instability, right knee Category: Surgical Plan: I explained to her that it does not appear that she has sustained any structural abnormalities. I do not feel that there is any damage done to the repair. I stressed the importance of working with physical therapy to improve her flexion. She should be at 90 degrees x 6 weeks postop. She should remove the brace while doing therapy exercises. I did send her a prescription for naproxen to the pharmacy which she will take for 2 weeks twice a day to help with her discomfort. She will follow up on June [address] Beltran for her routine postop appointment. At that time she should be transitioned to a patellar stabilizing brace and progress with her range of motion and quad strength. Medications: New naproxen 500 mg PO BID 60 tabs 3RF 30 days Coding Level of Care Code Global (42455) Diagnoses Patellar instability of right knee M25.361
== END 2024-05-25 14:13 | disposition home or self-care (01) ==
PROVIDERS: PCP Internal Medicine; Visit Provider Physician Assistant
DX: M25.361 Other instability, right knee (principal)
CPT/HCPCS: 99024

== ENCOUNTER → 2024-05-25 13:38 | Outpatient (BNVA) | payer OTHER, SELFPAY | PROVIDERS: PCP Internal Medicine; Visit Provider Physician Assistant | DX: Z47.89 Encounter for other orthopedic aftercare (principal); M25.361 Other instability, right knee | CPT/HCPCS: 99212 ==

== ENCOUNTER 2024-06-04 13:49 | Outpatient (AMB) | payer OTHER, SELFPAY ==
[2024-06-04 14:34] VITALS: BMI 43.8
--- NOTE | 2024-06-04 14:34 | MHC.OFFVIS ---
Vital Signs 06/04/24 14:34 Height 4 ft 11 in Weight 217 lb BMI 43.8 Intake Visit Reasons: PO RT MPFL reconstruction 04/15/24 NE Intake Note: Isabella is a 44 year old right hand dominant female who presents today post operatively s/p right MPFL reconstruction 04/15/24 NE. At her last visit she was given an Rx for Nproxen and instructed that by 6x weeks PO she should be at about 90 degrees of flexion. Patient reports that she is feeling discouraged, she has reached 70 degrees of flexion. She feels that she is trying her best and doesn't understand why she cannot reach this goal. She is compliant with her home exercises. The only time she has pain is when she over does it in PT, seh continues to wear her brace locked in extension Allergies penicillin G Allergy (Unknown, Verified 05/06/24 14:04) HIVES penicillin V Allergy (Unknown, Verified 05/06/24 14:04) hives Penicillins [PENICILLINS] Allergy (Unknown, Verified 05/06/24 14:04) HIVES basil Allergy (Verified 05/06/24 14:04) Anaphylaxis CT Scan dye Allergy (Unknown, Uncoded 05/06/24 14:04) unknown Flushot Allergy (Unknown, Uncoded 05/06/24 14:04) unknown H1N1 VACCINE Allergy (Unknown, Uncoded 05/06/24 14:04) HIVES HPI HPI PO RT MPFL reconstruction 04/15/24 NE: Details: Isabella is doing well now proximally 6 weeks status post MPFL reconstruction. She is still stiff in flexion but can bend to about 75 degrees. PFSH Medical History Hx of seizure disorder Hx of atrial tachycardia Hypothyroidism Asthma Depression Surgical History Patellar instability of right knee Status post ligament repair History of tonsillectomy and adenoidectomy Family History Father Myocardial infarction HTN (hypertension) Diabetes mellitus CVD (cardiovascular disease) Mother No problems noted. Maternal Grandmother Cancer Maternal Grandfather Cancer Paternal Grandmother Cancer Paternal Grandfather No problems noted. Brother No problems noted. Sister No problems noted. Sister No problems noted. Sister No problems noted. Social History Alcohol intake: never Patient Tobacco Use Status: Never used Tobacco Current occupational status: unemployed Current occupation: right handed Physical Exam Vital Signs: BMI result Body Mass Index 43.8 Results Reviewed Results Reviewed: Incision clean dry and intact Assessment & Plan Assessment & Plan (1) Patellar instability of right knee: Comment: Right knee MPFL reconstruction with allograft 04/15/2024 NE Code(s): M25.361 - Other instability, right knee Category: Surgical Plan: Status post MPFL reconstruction. Overall Isabella is doing well. Continue physical therapy and weight-bearing as tolerated. Avoid hyperflexion. Follow up 6 weeks. Coding Level of Care Code Global (17634) Diagnoses Patellar instability of right knee M25.361
== END 2024-06-04 14:58 | disposition home or self-care (01) ==
PROVIDERS: PCP Internal Medicine; Visit Provider Orthopaedic Surgery
DX: M25.361 Other instability, right knee (principal)
CPT/HCPCS: 99024

== ENCOUNTER → 2024-06-04 13:49 | Outpatient (BNVA) | payer OTHER, SELFPAY | PROVIDERS: PCP Internal Medicine; Visit Provider Orthopaedic Surgery | DX: M25.361 Other instability, right knee (principal) | CPT/HCPCS: 99212 ==

== ENCOUNTER 2024-06-08 12:43 | Outpatient (AMB) | payer OTHER, SELFPAY ==
--- NOTE | 2024-06-08 13:01 | MHC.OFFVIS ---
Intake Visit Reasons: PO brace change RT MPFL reconstruction 04/15/24 NE Intake Note: Isabella is a 44 year old female who presents today s/p Right MPFL Recon 04/15/24. Patient reports that the ROM Brace that was given is digging into her ankle, adjustements are not helping. She was fit for a Trupull brace Allergies penicillin G Allergy (Unknown, Verified 05/06/24 14:04) HIVES penicillin V Allergy (Unknown, Verified 05/06/24 14:04) hives Penicillins [PENICILLINS] Allergy (Unknown, Verified 05/06/24 14:04) HIVES basil Allergy (Verified 05/06/24 14:04) Anaphylaxis CT Scan dye Allergy (Unknown, Uncoded 05/06/24 14:04) unknown Flushot Allergy (Unknown, Uncoded 05/06/24 14:04) unknown H1N1 VACCINE Allergy (Unknown, Uncoded 05/06/24 14:04) HIVES PFSH Medical History Hx of seizure disorder Hx of atrial tachycardia Hypothyroidism Asthma Depression Surgical History Patellar instability of right knee Status post ligament repair History of tonsillectomy and adenoidectomy Family History Father Myocardial infarction HTN (hypertension) Diabetes mellitus CVD (cardiovascular disease) Mother No problems noted. Maternal Grandmother Cancer Maternal Grandfather Cancer Paternal Grandmother Cancer Paternal Grandfather No problems noted. Brother No problems noted. Sister No problems noted. Sister No problems noted. Sister No problems noted. Social History Alcohol intake: never Patient Tobacco Use Status: Never used Tobacco Current occupational status: unemployed Current occupation: right handed Physical Exam Extrem Other: unchanged from prior Assessment & Plan Assessment & Plan (1) Patellar instability of right knee: Comment: Right knee MPFL reconstruction with allograft 04/15/2024 NE Code(s): M25.361 - Other instability, right knee Category: Surgical Plan: Sajan-pull knee sleeve given. Continue PT Coding Level of Care Code Global (40946) Diagnoses Patellar instability of right knee M25.361
== END 2024-06-08 13:12 | disposition home or self-care (01) ==
PROVIDERS: PCP Internal Medicine; Visit Provider Orthopaedic Surgery
DX: M25.361 Other instability, right knee (principal)
CPT/HCPCS: 99024

== ENCOUNTER → 2024-06-08 12:43 | Outpatient (BNVA) | payer OTHER, SELFPAY | PROVIDERS: PCP Internal Medicine; Visit Provider Orthopaedic Surgery | DX: M25.361 Other instability, right knee (principal); Z47.89 Encounter for other orthopedic aftercare | CPT/HCPCS: 99212 ==

== ENCOUNTER 2024-06-09 13:00 | Outpatient (RCR) | payer OTHER, SELFPAY ==
--- NOTE | 2024-05-15 13:35 | MHC.PT.EP ---
[facility] [place] Office [place] Office May Office [address] Jacqueline Hayes [address] [phone] F: [phone] F: [phone] F: [phone] F: [phone] Physical Therapy Plan of Care Date of Evaluation: 05/15/24 Date of Surgery: 04/15/2024 Diagnosis: R MPFL reconstruction 04/15/2024 Assessment: Patient is a 44 year old female presenting to PT s/p R MPFL reconstruction 04/15/2024. She presents today with impairments in pain, ROM, knee strength, hip strength, gait mechanics, and protocol limitations. 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 Pt expresses chcf goal of returning to PLOF, and is motivated to work towards this in PT. Clinical presentation today is most consistent with signs and sx associated with s/p R MPFL reconstruction on 04/15/2024 and pt will benefit from skilled PT 2 week x 20 weeks to address the following problems and impairments noted upon evaluation: pain, ROM, knee strength, hip strength, gait mechanics, and protocol limitations. These problems limit the patient with the following functional activities: ambulating, stair negotiation, ADLs, work. The prescribed treatment plan of care is medically necessary. Co-morbidities of seizures, atrial tachycardia were identified and taken into considerations of plan of care. Pt was educated on HEP, role of PT, prognosis, POC. Frequency and Duration: The patient will be seen 2 x week x 20 weeks Short Term Goals: Pt will demonstrate ROM 0-90 in 6 weeks. Pt will demonstrate ability to perform SLR without lag in 6 weeks. Pt will demonstrate full ROM in 12 weeks. Pt will demonstrate hip MMT strength at least 4/5 in 12 weeks for improved lumbopelvic stability. Power Chisel Operator Goals: Pt will demonstrate knee MMT strength at least 4/5 in 16 weeks to prepare for stair negotiation. Pt will demonstrate ability to ambulate with normal mechanics and no brace in 16 weeks. Pt will demonstrate knee MMT strength of 5/5 in 20 weeks for return to PLOF. Treatment Plan: Modalities to reduce pain, spasms and effusion. Manual therapy to restore motion and function. Therapeutic exercise to improve strength and flexibility. Neuromuscular re-education for posture and balance. Therapeutic activities to return to functional activities of daily living. Electronically signed by: Linda Raymond, PT, DPT, ATC Please sign and return to therapist. Thank you for your referral.
--- NOTE | 2024-07-14 07:56 | MHC.PT.DC ---
[facility] [place] [facility] [place] [facility] [place] [facility] [address] [facility] [phone] F: [phone] F: [phone] F: [phone] F: [phone] Physical Therapy Discharge Report Diagnosis: R MPFL reconstruction 04/15/2024 Date of Surgery: 04/15/2024 Date of Evaluation: 05/15/24 Date of Discharge: 07/14/24 Treatments to Date: 7 Cancellations to Date: 4 No Shows to Date: 0 Discharge Status: Discharge Summary: Pt has not returned to skilled PT in >30 days. Therefore to be d/c. Electronically signed by: Linda Raymond, PT, DPT, ATC Please sign and return to therapist. Thank you for your referral.
== END 2024-07-14 07:56 | disposition home or self-care (01) ==
LOC: HO.PTCHIC 13:00
PROVIDERS: PCP Internal Medicine; Visit Provider Physician Assistant
DX: M25.361 Other instability, right knee (principal)
CPT/HCPCS: 97110; 97161

== ENCOUNTER 2024-06-12 16:45 | Emergency (ER) | payer OTHER, SELFPAY ==
[2024-06-12 16:51] VITALS: BP 140/98; BP 153/96; PULSE 103; PULSE 105; RESP 20; TEMP 37.1; O2SAT 97; O2SAT 98; BMI 42.4
--- NOTE | 2024-06-12 16:58 | MHC.CARE ---
T/w spoke with Tracy from [facility] . She reports pt is being sent over to [facility] after being seen by [facility] following concerns of feeling unsafe due to not having medications and expressing SI. Pt is a client of [facility] therapy/psychiatry and received medication earlier today. Previous suicide attempts and trauma hx noted. Pt lives alone and feels unsafe due to having knives all over the kitchen. Pt has a sister, mother, and nephew as listed family supports. Dispo was [facility] bedsearch but [facility] notes there are no [facility] beds available. T/W requested [facility] to fax over copy of assessment.
[2024-06-12 17:10] VITALS: BP 153/96; PULSE 105; RESP 20; TEMP 37.1; O2SAT 97
[2024-06-12 17:14] VITALS: BP 153/96; PULSE 105; RESP 20; TEMP 37.1; O2SAT 97
--- NOTE | 2024-06-12 17:27 | ED.GENADULT ---
HPI - General Adult General Chief complaint: Psychiatric Symptoms Stated complaint: si, doesnt feel safe at home, non med compliant Time Seen by Provider: 06/12/24 17:27 Source: patient Limitations: no limitations History of Present Illness HPI narrative: 44-year-old female with a history of bipolar, hypothyroidism, diabetes, history of seizures, tachycardia, presents for evaluation of increased depression, suicidal ideation. Patient states over the past approximately a year and a half she has suffered the loss of 3 family members. In addition, the patient has been off of her psychiatric medications for many months. Today she felt ?something snapped ?where she was feeling increasingly depressed and suicidal. Currently the patient denies any suicidal ideation. She denies any homicidal ideation. No visual hallucinations. She does report command auditory hallucinations telling her to harm herself as well as screaming. She currently has no physical complaints. She denies any alcohol, tobacco or illicit drug abuse. Patient would like to speak with the crisis team. Of note, the patient has not had any seizures since 1998. She has taken medication intermittently since that time. Related Data Previous Rx's ?Medication ?Instructions ?Recorded leg brace (Knee Support Brace) #1 ea 09/21/20 atorvastatin 80 mg tablet 80 mg PO DAILY 90 days #90 tabs 06/20/21 metformin 500 mg tablet 500 mg PO BID 90 days #180 tabs 06/20/21 Allergies Allergy/AdvReac Type Severity Reaction Status Date / Time penicillin G Allergy Unknown HIVES Verified 06/12/24 17:07 penicillin V Allergy Unknown hives Verified 06/12/24 17:07 Penicillins [PENICILLINS] Allergy Unknown HIVES Verified 06/12/24 17:07 basil Allergy Anaphylaxis Verified 06/12/24 17:07 CT Scan dye Allergy Unknown unknown Uncoded 06/12/24 17:07 Flushot Allergy Unknown unknown Uncoded 06/12/24 17:07 H1N1 VACCINE Allergy Unknown HIVES Uncoded 06/12/24 17:07 Review of Systems Constitutional: Constitutional: Denies chills, Denies fever(s) and Denies headache(s) ENT: Denies headache(s) and Denies neck pain Cardiovascular: Cardiovascular: Denies chest pain, Denies palpitations, Denies dyspnea, Denies dyspnea on exertion and Denies orthopnea Respiratory: Respiratory: Denies cough, Denies dyspnea and Denies dyspnea on exertion Gastrointestinal: Gastrointestinal: Denies abdominal pain, Denies melena, Denies hematochezia, Denies diarrhea, Denies nausea and Denies vomiting Genitourinary: Genitourinary: Denies dysuria and Denies urinary urgency Musculoskeletal: Musculoskeletal: Denies back pain, Denies muscle weakness, Denies neck pain and Denies numbness Integumentary/Breasts: Skin/Breast: Denies rash Neurologic: Denies headache(s), Denies focal weakness and Denies numbness Psychiatric: Psychiatric: Reports depression and Reports suicidal ideation Endocrine: Endocrine: Denies palpitations PMFSH Past Medical History Medical History Hx of seizure disorder Hx of atrial tachycardia Hypothyroidism Asthma Depression Surgical History Patellar instability of right knee Status post ligament repair History of tonsillectomy and adenoidectomy Family History Family History Father Myocardial infarction HTN (hypertension) Diabetes mellitus CVD (cardiovascular disease) Mother No problems noted. Maternal Grandmother Cancer Maternal Grandfather Cancer Paternal Grandmother Cancer Paternal Grandfather No problems noted. Brother No problems noted. Sister No problems noted. Sister No problems noted. Sister No problems noted. Social History Social History Alcohol intake: never Patient Tobacco Use Status: Never used Tobacco Smoked in Last 30 Days: No Use of substances other than those prescribed or required for medical reasons: No Advance Directives: No Advance Directives Information Provided: No Do you have a plan to hurt others: No Plan Patient : No Current occupational status: unemployed Current occupation: right handed Physical Exam ED Vital Signs: Vital Signs - 24 hr 06/12/24 16:51 06/12/24 17:10 06/12/24 17:14 Temperature 98.8 F 98.8 F 98.8 F Pulse Rate 105 H 105 H 105 H Respiratory Rate 20 20 20 Blood Pressure 153/96 H 153/96 H 153/96 H Pulse Oximetry 97 97 97 Oxygen Delivery Method Room Air Room Air Room Air BMI result Body Mass Index 42.4 Const General: cooperative, comfortable and no acute distress Eyes Other: Pupils equal round and reactive to light Resp Other: Lung sounds are clear throughout. No wheezes rales or rhonchi Cardio Other: Regular rate and rhythm Psych Affect: Sad affect present Attitude: cooperative Judgement: Good judgement present (Psych) Course Course Course Narrative: June 12, 2024 7:15 p.m. patient was seen and evaluated by the behavioral health team. Given that the patient has not been on her medications and even when she was they were not as effective as they could be, and that she has decompensated out in the community, patient will remain in the hospital and a psychiatric bed search will commence. Patient remains hemodynamically stable. She does report feeling anxious at this time, trial of hydroxyzine. Patient remains under direct observation. June 13, 2024, 2:00 a.m. patient resting comfortably at this time. Placement pending. Signed out in stable condition. Medications Administered Discontinued Medications Generic Name Dose Route Start Last Admin Trade Name Freq PRN Reason Stop Dose Admin Acetaminophen 975 mg 06/13/24 01:14 06/13/24 01:19 Acetaminophen 325 Mg Tablet PO 06/13/24 01:15 975 mg ONCE ONE Administration Hydroxyzine HCl 50 mg 06/12/24 19:13 06/12/24 19:26 Hydroxyzine Hcl 50 Mg Tablet PO 06/12/24 19:14 50 mg ONCE ONE Administration Lorazepam 2 mg 06/12/24 19:59 06/12/24 20:17 Lorazepam 1 Mg Tablet PO 06/12/24 20:00 Not Given ONCE STA Medical Decision Making Medical Decision Making [facility] Narrative: 44-year-old female with a history of bipolar disorder, seizure history, diabetes, with increasing depression and recent suicidal ideation. Patient is well-appearing in no acute distress. Patient will benefit from crisis evaluation. No evidence of withdrawal. She is currently under direct observation. Crisis team evaluation is pending. Differential Diagnosis Differential Diagnoses: The differential diagnosis associated with the presentation includes Depression Bipolar Psychosis PTSD Consult Healthcare Provider Management of the patient was discussed with: Behavioral Health Provider Lab Data [facility] Lab Attestation statement: I reviewed the patient's lab results. 06/12/24 18:29 06/12/24 18:29 Labs: Lab Results 06/12/24 06/12/24 Range/Units 17:56 18:29 WBC 12.4 H (4.8-10.8) X10*3/uL RBC 5.08 (4.20-5.50) X10*6/uL Hgb 14.2 (12.0-16.0) g/dl Hct 42.0 (37.0-47.0) % MCV 82.7 (80.0-98.0) fL MCH 28.0 (27.0-33.0) pg MCHC 33.8 (31.0-35.0) g/dl RDW 12.8 (11.0-16.0) % Plt Count 310 (160-400) X10*3/uL MPV 9.7 (9.4-12.3) fL Immature Gran % (Auto) 0.2 (0.0-0.4) % Neut % (Auto) 71.2 (45-73) % Lymph % (Auto) 20.0 (20-40) % [place] % (Auto) 5.2 (2-11) % Eos % (Auto) 2.7 (0-4) % Baso % (Auto) 0.7 (0-2) % Lymph # (Auto) 2.5 (1.2-4.9) X10*3/uL [place] # (Auto) 0.7 (0.1-1.2) X10*3/uL Eos # (Auto) 0.3 (0.0-0.4) X10*3/uL Baso # (Auto) 0.1 (0.0-0.2) X10*3/uL Abs Immat Gran (auto) 0.03 (0.00-0.03) X10*3/uL Absolute Neuts (auto) 8.8 H (2.0-8.3) x10*3/uL Absolute Nucleated RBC 0.000 (0.0-0.012) X10*3/uL Nucleated RBC % (auto) 0.0 (0.0-0.2) /100WBC Sodium 140 (135-145) mmol/L Potassium 4.0 (3.3-5.1) mmol/L Chloride 107 (96-108) mmol/L Carbon Dioxide 24 (22-29) mmol/L Anion Gap 13 (12-20) BUN 16 (9-16) mg/dL Creatinine 0.71 (0.5-1.4) mg/dL Estim Creat Clear Calc 101.1 Estimated GFR > 60 Random Glucose 100 (60-115) mg/dL Calcium 9.1 (8.4-10.2) mg/dL Total Bilirubin 0.2 (0.0-1.0) mg/dL AST 12 (5-31) U/L ALT 19 (0-31) U/L Alkaline Phosphatase 109 (39-117) U/L Total Protein 7.4 (6.5-8.0) g/dL Albumin 4.1 (3.5-5.0) g/dL Urine Test NEGATIVE (NEGATIVE) Urine Opiates Screen Not Detected (Not Detect) Ur Buprenorphine Scrn Not Detected (Not Detect) ng/mL Ur Oxycodone Screen Not Detected (Not Detect) ng/mL Urine Methadone Screen Not Detected (Not Detect) ng/mL Urine Fentanyl Screen Not Detected (Not Detect) Ur Barbiturates Screen Not Detected (Not Detect) Ur Phencyclidine Scrn Not Detected (Not Detect) Ur Amphetamines Screen Not Detected (Not Detect) U Benzodiazepines Scrn Not Detected (Not Detect) Urine Cocaine Screen Not Detected (Not Detect) U Marijuana (THC) Screen Not Detected (Not Detect) Chronic Conditions Patient?s care impacted by: Diabetes Social Determinants Patient?s care significantly limited by Social Determinants of Health including: Problems related to primary support group Discharge Plan Discharge Clinical Impression: Depression Patient Disposition: Still a Patient Prescriptions: No Action atorvastatin 80 mg tablet 80 mg PO DAILY 90 Days Qty: 90 0RF metformin 500 mg tablet 500 mg PO BID 90 Days Qty: 180 0RF (DME) Knee Support Brace Misc See Rx Instructions .ROUTE .MEDSUPPLY Qty: 1 0RF Rx Instructions: PLAYMAKER 2, SPACER, WRAP, XL M25.361 Interventions: [place]-Suicide Risk Severity Scale Last Done: 06/12/24 17:10 Print Language: Arabic
[2024-06-12 18:20] LABS: Amphetamine Screen Urine Not Detected (Not Detect); Barbiturates, Urine Not Detected (Not Detect); Benzodiazepines Screen Urine Not Detected (Not Detect); Buprenorphine Scr Not Detected (Not Detect); Cannabinoid Screen Urine Not Detected (Not Detect); Cocaine Screen Urine Not Detected (Not Detect); Fentanyl, urine Not Detected (Not Detect); Methadone Screen, Urine Not Detected (Not Detect); Opiate Screen Urine Not Detected (Not Detect); Oxycodone Screen Urine Not Detected (Not Detect); Phencyclidine Screen Urine Not Detected (Not Detect)
[2024-06-12 18:36] LABS: UPreg QC Valid YES; Urine Pregnancy NEGATIVE (NEGATIVE)
[2024-06-12 18:36] LABS: MANUAL DIFF FLAG NO
--- NOTE | 2024-06-12 18:36 | MHC.CARE ---
T/W called [facility] again to request them to fax over assessment. [employer] was informed [facility] will be faxing over 2 separate assessments.
[2024-06-12 18:40] LABS: Basophils Absolute Auto 0.1 X10*3/uL (0.0-0.2); Basophils Percent Auto 0.7 % (0-2); Eosinophils Absolute Auto 0.3 X10*3/uL (0.0-0.4); Eosinophils Percent Auto 2.7 % (0-4); Hemoglobin 14.2 g/dl (12.0-16.0); Imm Gran Abs Auto 0.03 X10*3/uL (0.00-0.03); Imm Gran Pct Auto 0.2 % (0.0-0.4); Lymphocytes Absolute Auto 2.5 X10*3/uL (1.2-4.9); Mean Corpuscular HGB Conc 33.8 g/dl (31.0-35.0); Mean Corpuscular Volume 82.7 fL (80.0-98.0); Mean Platelet Volume 9.7 fL (9.4-12.3); Monocytes Absolute Auto 0.7 X10*3/uL (0.1-1.2); Monocytes Percent Auto 5.2 % (2-11); Neutrophils Absolute Auto 8.8 x10*3/uL (2.0-8.3); Neutrophils Percent Auto 71.2 % (45-73); Platelet Count 310 X10*3/uL (160-400); Red Blood Count 5.08 X10*6/uL (4.20-5.50); Red Cell Distribution Width 12.8 % (11.0-16.0); White Blood Count 12.4 X10*3/uL (4.8-10.8)
[2024-06-12 18:53] LABS: Alanine Aminotransferase 19 U/L (0-31); Albumin Level 4.1 g/dL (3.5-5.0); Alkaline Phosphatase 109 U/L (39-117); Anion Gap 13 (12-20); Aspartate Amino Transferase 12 U/L (5-31); Bilirubin Total 0.2 mg/dL (0.0-1.0); Blood Urea Nitrogen 16 mg/dL (9-16); Calcium 9.1 mg/dL (8.4-10.2); Carbon Dioxide 24 mmol/L (22-29); Chloride 107 mmol/L (96-108); Creatinine Clr Calc Pharmacy 101.1; Estimated Glomerular Filt Rate > 60; Glucose Random 100 mg/dL (60-115); Sodium 140 mmol/L (135-145); Total Protein 7.4 g/dL (6.5-8.0)
[2024-06-12] MEDS: hydrOXYzine HCL 50 MG TABLET PO (19:26)
--- NOTE | 2024-06-12 23:35 | PC.NURSE ---
resting queitly with eyes closed, resp with ease, will cont plan of care
--- NOTE | 2024-06-13 | ECG_ITS ---
Test Reason : med clear Blood Pressure : / mmHG Vent. Rate : 091 BPM Atrial Rate : 091 BPM P-R Int : 156 ms QRS Dur : 080 ms QT Int : 364 ms P-R-T Axes : 059 005 076 degrees QTc Int : 447 ms Normal sinus rhythm Nonspecific ST and T wave abnormality Abnormal ECG When compared to the previous EKG of No significant changes seen Referred By: Rony Bassett Electronically Signed By:CISCO CALERO MD
[2024-06-13] MEDS: Acetaminophen 325 MG TABLET 975 MG PO (01:19)
[2024-06-13] MEDS: Atorvastatin Calcium 80 MG TABLET PO (09:09)
[2024-06-13] MEDS: metFORMIN HCl 500 MG TABLET PO ×2 (09:09→20:11)
--- NOTE | 2024-06-13 13:23 | PC.NURSE ---
Intake phone call received for patient to be sent to [facility]. Expected eta arrival time is friday 06/15 at 9am.
--- NOTE | 2024-06-13 13:29 | MHC.CARE ---
Patient has been pre-accepted to [address] [id number] for saturday06/15/24 ETA 9am, N2N will be needed on saturday morning, they will be calling us for that. Accepting provider is Dr Lisa Hickey.
--- NOTE | 2024-06-13 14:43 | P.CNPS_ITS ---
History of Present Illness Date of Service: t Chief Complaint: si, doesnt feel safe at home, non med compliant Discussed with referring provider: Yes Sources of Information: patient interviewed, chart reviewed and crisis/core team assessment reviewed HPI Narrative: The patient is a 44 year old female with a past history of Bipolar disorder, PTSD and borderline personality disorder, followed in the community by [facility], self referred to the ED due to suicidal ideation. The patient reported taht in the last year she had 3 losses in her family and she had been more dysphoric. Recently, she had problems filling her scripts and she had been non- compliant with medications for at least 3 weeks. She reported sporadic AH and increased anxiety, she was able to contract for saffety while she was here. She complaints of depressed mood, anhedonia, lack of energy and suicidal thoughts. Typically, she doesn't have psychotic symptoms but recently she has auditory hallucinations and suicidal thoughts that are intrussive. The present consult was asked by the care team to restart medications. We discussed options with the patient and she agreed to restart a slow titration of Lamcital, start a low dose of Seroquel at hs for insomnia and add Haldol PRN for auditory hallucinations. Past Psychiatric History: First psychiatric contact at age of 7, always on treatment. She has at least more than 10 admissions into the hospital for psychiatric reasons. her last admission was 10 years ago. She follows treatment as an outpatient at [facility] [address] Foreman Medical Evaluation Reviewed: Yes Review of Systems Review of Systems Yes all other systems are reviewed and are negative [facility] Medical History Hx of seizure disorder Hx of atrial tachycardia Hypothyroidism Asthma Depression Surgical History Patellar instability of right knee Status post ligament repair History of tonsillectomy and adenoidectomy Substance History: Denies Diagnostics Vital Signs (24Hr): Vital Signs - 24 hr 06/12/24 16:51 06/12/24 17:10 06/12/24 17:14 Temperature 98.8 F 98.8 F 98.8 F Pulse Rate 105 H 105 H 105 H Respiratory Rate 20 20 20 Blood Pressure 153/96 H 153/96 H 153/96 H Pulse Oximetry 97 97 97 Oxygen Delivery Method Room Air Room Air Room Air BMI result Body Mass Index 42.4 Labs 08/09/24 18:29 06/12/24 18:29 Labs: Laboratory Results - last 48 hr 06/12/24 06/12/24 17:56 18:29 WBC 12.4 H RBC 5.08 Hgb 14.2 Hct 42.0 MCV 82.7 MCH 28.0 MCHC 33.8 RDW 12.8 Plt Count 310 MPV 9.7 Immature Gran % (Auto) 0.2 Neut % (Auto) 71.2 Lymph % (Auto) 20.0 Chambers % (Auto) 5.2 Eos % (Auto) 2.7 Baso % (Auto) 0.7 Lymph # (Auto) 2.5 Chambers # (Auto) 0.7 Eos # (Auto) 0.3 Baso # (Auto) 0.1 Abs Immat Gran (auto) 0.03 Absolute Neuts (auto) 8.8 H Absolute Nucleated RBC 0.000 Nucleated RBC % (auto) 0.0 Sodium 140 Potassium 4.0 Chloride 107 Carbon Dioxide 24 Anion Gap 13 BUN 16 Creatinine 0.71 Estim Creat Clear Calc 101.1 Estimated GFR > 60 Random Glucose 100 Calcium 9.1 Total Bilirubin 0.2 AST 12 ALT 19 Alkaline Phosphatase 109 Total Protein 7.4 Albumin 4.1 Urine Test NEGATIVE Urine Opiates Screen Not Detected Ur Buprenorphine Scrn Not Detected Ur Oxycodone Screen Not Detected Urine Methadone Screen Not Detected Urine Fentanyl Screen Not Detected Ur Barbiturates Screen Not Detected Ur Phencyclidine Scrn Not Detected Ur Amphetamines Screen Not Detected U Benzodiazepines Scrn Not Detected Urine Cocaine Screen Not Detected U Marijuana (THC) Screen Not Detected Mental Status Exam Mental Status Exam Patient Appearance: Appropriate Patient Orientation: Person, Place, Time and Situation Level of Consciousness: Awake and Appropriate Patient Behavior: Appropriate Mood Description: Calm Affect Description: Constricted Patient Cognition Impaired: No Ability to Follow Directions: Good Speech Pattern: Clear Hallucinations: Auditory Delusions: Paranoid Ideation and Ideas of Reference Thought Content: positive for Circumstantial Judgement: Fair Medications Medications Current Medications Atorvastatin Calcium (Atorvastatin Calcium 80 Mg Tablet) 80 mg PO DAILY [facility] Last Admin: 06/13/24 09:09 Dose: 80 mg Metformin HCl (Metformin Hcl 500 Mg Tablet) 500 mg PO BID [facility] Last Admin: 06/13/24 09:09 Dose: 500 mg Allergies Allergies Allergy/AdvReac Type Severity Reaction Status Date / Time penicillin G Allergy Unknown HIVES Verified 06/12/24 17:07 penicillin V Allergy Unknown hives Verified 06/12/24 17:07 Penicillins [PENICILLINS] Allergy Unknown HIVES Verified 06/12/24 17:07 basil Allergy Anaphylaxis Verified 06/12/24 17:07 CT Scan dye Allergy Unknown unknown Uncoded 06/12/24 17:07 Flushot Allergy Unknown unknown Uncoded 06/12/24 17:07 H1N1 VACCINE Allergy Unknown HIVES Uncoded 06/12/24 17:07 Assessment & Plan Assessment & Plan (1) Bipolar 1 disorder: Status: Acute Code(s): F31.9 - Bipolar disorder, unspecified (2) PTSD (post-traumatic stress disorder): Status: Acute Code(s): F43.10 - Post-traumatic stress disorder, unspecified (3) Borderline personality disorder: Status: Acute Code(s): F60.3 - Borderline personality disorder Plan The patient is an adult female with biporlar disorder, borderline personality disorder and PTSD self referred for suicidal ideation to the ED after several losses and non-compliance with treatment for several days. Currently severely dysphoric with psychotic symptms. Plan 1. Inpatient level of care in psychiatry. 2. Start Lamictal 25 po daily today 3. Seroquel 100 mg po qhs 4. Haldol 5 mg po q6h PRN hallucinations/psychosis. 5. Reassessment as demant Total time managing care of this patient today __30__ minutes. Patient educated on: diagnosis and medication risk/benefits Informed Consent: understands
[2024-06-13] MEDS: lamoTRIgine 25 MG TABLET PO (14:57)
--- NOTE | 2024-06-13 15:19 | PC.NURSE ---
Patient sitting upright, watching TV. Reports that she is hearing voices and finding them distracting while watching TV, causing difficulty with focus. Pt asked is the Lamictal that they just gave me going to help with lowering the voices I'm hearing? This RN stated that she is reviewing medication list, and will see what interventions or medications that can be administered for auditory hallucinations. Pt is pleasant, calm/cooperative, and thankful to this RN.
[2024-06-13] MEDS: HaloperidoL 5 MG TABLET PO (15:26)
--- NOTE | 2024-06-13 19:33 | PC.NURSE ---
patient appears to remain at rest at present respirations are even and unlabored patient appears in no distress.
[2024-06-13] MEDS: QUEtiapine Fumarate 100 MG TABLET PO (20:11)
[2024-06-13 20:23] VITALS: BP 141/84; PULSE 94; RESP 18; TEMP 36.6; O2SAT 97
[2024-06-13] MEDS: Magnesium Hydrox/Alum Hydrox 30 ML ORAL.SUSP PO (22:01)
[2024-06-13 22:19] LABS: Appearance Urine Clear; Color Urine Yellow; Glucose Urine UA Negative (Negative); Leukocyte Esterase Urine Negative (Negative); Nitrite Urine Negative (Negative); PH 5.5 (5.0-9.0); Specific Gravity - Urine 1.025 (1.005-1.025); UMIC TRIGGER UACC YES; Urine Blood Large (3+) (Negative); Urine Ketones Negative (Negative); Urine Protein Negative (Neg-Trace)
[2024-06-13 22:57] LABS: Bacteria Urine None Seen (None Seen); Hyaline Casts Urine 0-2 /LPF (0-2); Squamous Epithelial Cell Urine 0-2 /HPF (0-2); WBC Urine 0-5 /HPF (0-5)
[2024-06-14 05:53] VITALS: BP 135/96; PULSE 108; RESP 17; TEMP 36.4; O2SAT 96
[2024-06-14] MEDS: Acetaminophen 325 MG TABLET 650 MG PO (05:58)
[2024-06-14] MEDS: Atorvastatin Calcium 80 MG TABLET PO (09:50)
[2024-06-14] MEDS: metFORMIN HCl 500 MG TABLET PO (09:50)
[2024-06-14] MEDS: lamoTRIgine 25 MG TABLET PO (09:50)
[2024-06-14 15:16] VITALS: BP 135/78; PULSE 96; RESP 16; TEMP 36.9; O2SAT 95
== END 2024-06-14 15:20 | disposition home or self-care (01) ==
PROVIDERS: Physician Assistant; Emergency Provider Emergency Medicine Emergency Medical Services
DX: F32.A Depression, unspecified (principal); R45.851 Suicidal ideations; R44.0 Auditory hallucinations; F60.3 Borderline personality disorder; F43.10 Post-traumatic stress disorder, unspecified; E11.9 Type 2 diabetes mellitus without complications; J45.909 Unspecified asthma, uncomplicated; Z79.02 Long term (current) use of antithrombotics/antiplatelets; Z79.84 Long term (current) use of oral hypoglycemic drugs
CPT/HCPCS: 36415; 80053; 80307; 81001; 81025; 85025; 93005; 99285; S9485

== ENCOUNTER → 2024-06-12 18:05 | Outpatient (BNV) | payer OTHER, SELFPAY | PROVIDERS: Emergency Provider Emergency Medicine Emergency Medical Services; Visit Provider Psychiatry & Neurology Psychiatry | DX: F60.3 Borderline personality disorder (principal); F31.4 Bipolar disorder, current episode depressed, severe, without psychotic features; F43.11 Post-traumatic stress disorder, acute | CPT/HCPCS: 99284 ==

== ENCOUNTER → 2024-06-13 19:54 | Outpatient (BNV) | payer OTHER, SELFPAY | PROVIDERS: Emergency Provider Emergency Medicine Emergency Medical Services; Visit Provider Internal Medicine Cardiovascular Disease | DX: R94.31 Abnormal electrocardiogram [ECG] [EKG] (principal) | CPT/HCPCS: 93010 ==

== ENCOUNTER 2024-07-23 12:22 | Outpatient (AMB) | payer OTHER, SELFPAY ==
--- NOTE | 2024-07-23 12:36 | A.OFFVIS_ITS ---
Intake Visit Reasons: PO RT MPFL reconstruction 04/15/24 NE Intake Note: Isabella is a 44 year old female who presents today for a post operative follow up s/p Right MPFL Reconstruction 04/15/24. At her last visit she was fit for a Sajan- Pull brace due to discomfort in the ROM brace. Patient reports that she is doing well, her ROM has improved. Allergies penicillin G Allergy (Unknown, Verified 06/12/24 17:07) HIVES penicillin V Allergy (Unknown, Verified 06/12/24 17:07) hives Penicillins [PENICILLINS] Allergy (Unknown, Verified 06/12/24 17:07) HIVES basil Allergy (Verified 06/12/24 17:07) Anaphylaxis CT Scan dye Allergy (Unknown, Uncoded 06/12/24 17:07) unknown Flushot Allergy (Unknown, Uncoded 06/12/24 17:07) unknown H1N1 VACCINE Allergy (Unknown, Uncoded 06/12/24 17:07) HIVES HPI HPI PO RT MPFL reconstruction 04/15/24 NE: Details: Isabella is a 44 year old female who presents today for a post operative follow up s/p Right MPFL Reconstruction 04/15/24. At her last visit she was fit for a Sajan- Pull brace due to discomfort in the ROM brace. Patient reports that she is doing well, her ROM has improved. [facility] Medical History Hx of seizure disorder Hx of atrial tachycardia Hypothyroidism Asthma Depression Surgical History Patellar instability of right knee Status post ligament repair History of tonsillectomy and adenoidectomy Family History Father Myocardial infarction HTN (hypertension) Diabetes mellitus CVD (cardiovascular disease) Mother No problems noted. Maternal Grandmother Cancer Maternal Grandfather Cancer Paternal Grandmother Cancer Paternal Grandfather No problems noted. Brother No problems noted. Sister No problems noted. Sister No problems noted. Sister No problems noted. Social History Alcohol intake: never Patient Tobacco Use Status: Never used Tobacco Current occupational status: unemployed Current occupation: right handed Physical Exam Extrem Other: Full range of motion. Well-healed medial incision. No effusion. No apprehension with lateral stress testing. Assessment & Plan Assessment & Plan (1) Patellar instability of right knee: Comment: Right knee MPFL reconstruction with allograft 04/15/2024 NE Code(s): M25.361 - Other instability, right knee Category: Surgical Plan: Doing well status post MPFL reconstruction. She may follow up as needed. She should continue her strengthening exercises. Coding Level of Care Code Global (35361) Diagnoses Patellar instability of right knee M25.361
== END 2024-07-23 13:16 | disposition home or self-care (01) ==
PROVIDERS: Visit Provider Orthopaedic Surgery
DX: M25.361 Other instability, right knee (principal)
CPT/HCPCS: 99212

== ENCOUNTER → 2024-07-23 12:22 | Outpatient (BNVA) | payer OTHER, SELFPAY | PROVIDERS: Visit Provider Orthopaedic Surgery | DX: M25.361 Other instability, right knee (principal) | CPT/HCPCS: 99212 ==